=== PATIENT | female | born 1960 | race Caucasian/White ===

== ENCOUNTER → 2018-07-13 | Outpatient (CLI) | payer OTHER ==
[2018-07-15 14:37] LABS: HPV 16 Negative (Negative); HPV 18 Negative (Negative); HPV OTHER HR TYPES Negative (Negative)
== END | disposition home or self-care (01) ==
LOC: LAB 11:12 → LAB SHORT 11:12
PROVIDERS: Obstetrics & Gynecology
DX: Z01.419 Encounter for gynecological examination (general) (routine) without abnormal findings (principal)
CPT/HCPCS: 87624; G0123

== ENCOUNTER → 2023-01-26 | Outpatient (CLI) | payer OTHER | END | disposition home or self-care (01) | LOC: LAB SHORT 09:05 → LAB 09:05 | DX: N39.0 Urinary tract infection, site not specified (principal) | CPT/HCPCS: 87077; 87086; 87186 ==

== ENCOUNTER → 2023-08-15 | Outpatient (CLI) | payer OTHER | END | disposition home or self-care (01) | LOC: LAB SHORT 13:47 → LAB 13:47 | DX: N39.0 Urinary tract infection, site not specified (principal) | CPT/HCPCS: 87077; 87086; 87186 ==

== ENCOUNTER 2024-02-08 09:42 | Day surgery (SDC) | payer OTHER ==
[~2024-02-08] VITALS: Ht 162 cm; Wt 115.0 kg
[~2024-02-08 09:42] MED LIST: CeFAZolin Sodium 2,000 MG in NS 100 ML IV SCH; Lactated Ringer's 1,000 ML IV SCH; Lidocaine 1%-EPI 1:100,000 50 ML UD SCH; Sodium Bicarb 8.4% 1 MEQ/ML 50 ML Vial IV SCH
[2024-02-08] MEDS ORDERED: Midazolam HCl 1MG / ML 2ML Vial ONE (10:34)
[2024-02-08 10:41] VITALS: BP 134/60
[2024-02-08] MEDS ORDERED: MOUNJARO10 MG/0.5 INJ (10:52)
[2024-02-08] MEDS ORDERED: ROSUVASTATIN CA20 MG PO (10:55)
[2024-02-08] MEDS ORDERED: ELIQUIS5 M3 PO (10:55)
[2024-02-08] MEDS ORDERED: LOSA50 PO (10:56)
[2024-02-08] MEDS ORDERED: BASAGLAR K100 UNIT/3 (10:56)
[2024-02-08] MEDS ORDERED: METAXALONE800 M1 (10:56)
[2024-02-08] MEDS ORDERED: ZOLOFT50 MG PO (10:56)
[2024-02-08] MEDS ORDERED: ESTRADIOL42.5 GM VG (10:57)
[2024-02-08] MEDS ORDERED: Hydroxychloroq200 MG PO (10:57)
[2024-02-08] MEDS ORDERED: CeFAZolin Sodium 1000 mg Vial ONE (10:57)
[2024-02-08] MEDS ORDERED: TRAM50 PO (10:57)
[2024-02-08] MEDS ORDERED: PREGABALIN75 MG PO (10:57)
[2024-02-08] MEDS ORDERED: Oxybutynin Chlo10 MG PO (10:57)
[2024-02-08] MEDS ORDERED: Nitrofurantoin100 M1 PO (10:58)
--- NOTE | 2024-02-08 10:59 | NUR ---
DR. STARR AT BEDSIDE FOR INJECTION; TIMEOUT COMPLETED.
[2024-02-08 11:20] VITALS: BP 132/52
[2024-02-08 11:25] VITALS: BP 139/70
[2024-02-08 11:35] VITALS: BP 143/77
[2024-02-08 11:40] VITALS: BP 123/67
--- NOTE | 2024-02-08 11:59 | NUR ---
DISCHARGE PT A&OX4, VSS/RA, BEDSIDE, BENNETT PO H20, DENIES PAIN, DENIES NAUSEA, DC INS PROVIDED. PT AND REPORT UNDERSTANDING THOSE INSTRUCTIONS. LEFT VIA WC WITH DC VOL TO GO HOME WITH ALL PERSONAL POSSESSIONS INCLUDING GLASSES AND DC INS. IV DC'D.
== END 2024-02-08 23:00 | disposition home or self-care (01) ==
LOC: ORSCSDS 09:42 → ORSCMMR 09:45 → ORSCSDS 11:00
PROVIDERS: Orthopaedic Surgery
PROC: 01N54ZZ Release Median Nerve, Percutaneous Endoscopic Approach (ICD-10-PCS; principal; 2024-02-08 11:00)
DX: G56.02 Carpal tunnel syndrome, left upper limb (principal); I10 Essential (primary) hypertension; E11.9 Type 2 diabetes mellitus without complications; F32.A Depression, unspecified; F41.9 Anxiety disorder, unspecified; Z79.01 Long term (current) use of anticoagulants; Z79.899 Other long term (current) drug therapy
CPT/HCPCS: 82947; J0690; J2250; J7120